=== PATIENT | female | born 1960 | race Hispanic/Latino ===

== ENCOUNTER 2021-03-24 14:57 | Emergency (ER) | payer SELFPAY ==
[~2021-03-24] VITALS: Ht 157.5 cm; Wt 106.1 kg
[2021-03-24] MEDS ORDERED: IBUPROFEN600 MG PO (16:05)
[2021-03-24] MEDS ORDERED: IBUPROFEN 600 MG TAB PO ONE (16:15)
== END 2021-03-24 17:18 | disposition home or self-care (01) ==
LOC: ER 15:32
DX: M79.661 Pain in right lower leg (principal); I10 Essential (primary) hypertension; E11.9 Type 2 diabetes mellitus without complications
CPT/HCPCS: 93971; 99283